=== PATIENT | female | born 2000 | race African-American/Black ===

== ENCOUNTER 2024-07-03 15:49 | Emergency (ER) | payer MEDICAID ==
[~2024-07-03] VITALS: Ht 157.5 cm; Wt 68.0 kg
[2024-07-03 15:51] VITALS: O2SAT 100
[2024-07-03] MEDS ORDERED: AMOX1TAB16 MT (19:37)
[2024-07-03] MEDS: IBUPROFEN 600MG TABLET PO ONE (19:56)
[2024-07-03 20:15] VITALS: BP 114/66; PULSE 104; RESP 18; TEMP 37.89192; O2SAT 99
== END 2024-07-03 20:15 | disposition home or self-care (01) ==
LOC: ER 15:49
DX: J32.9 Chronic sinusitis, unspecified (principal)
CPT/HCPCS: 71045; 87804; 99284